=== PATIENT | male | born 1975 | race American Indian/Alaskan Native ===

== ENCOUNTER 2017-05-08 10:27 | Outpatient (CLI) | payer OTHER ==
[2017-05-08] MEDS ORDERED: XYLOCAINE TOPICAL 4% TP ONE ×2 (11:10→12:37)
[2017-05-08] MEDS ORDERED: AD OINTMENT TP ONE (11:33)
[2017-05-09] MEDS ORDERED: AD OINTMENT TP SCH (10:00)
== END 2017-05-08 10:28 | disposition home or self-care (01) ==
LOC: WOUND 10:27
PROVIDERS: ATTEND Surgery
DX: T81.89XA Other complications of procedures, not elsewhere classified, initial encounter (principal); Y83.8 Other surgical procedures as the cause of abnormal reaction of the patient, or of later complication, without mention of misadventure at the time of the procedure; Y92.89 Other specified places as the place of occurrence of the external cause
CPT/HCPCS: 11042; G0463; A6250

== ENCOUNTER 2021-03-16 12:07 | Emergency (ER) | payer OTHER ==
--- NOTE | 2021-03-16 12:24 | Emergency Department Report ---
ED CPR HPI - General Chief Complaint: Cardiac Arrest/CPR Stated Complaint: CARDIAC ARREST Time Seen by Provider: 03/16/21 12:24 Source: family, EMS (Verbal report received from emergency medical services. EMS documentation not available at time of chart dictation ), RN notes reviewed, old records reviewed Mode of arrival: Stretcher Limitations: Physical Limitation - History of Present Illness Initial Comments: The patient was evaluated in the emergency department for symptoms described in the history of present illness. He/she was evaluated in the context of the global COVID-19 pandemic, which necessitated consideration that the patient might be at risk for infection with the virus that causes COVID-19. Institutional protocols and algorithms that pertain to the evaluation of patients at risk for COVID-19 are in a state of rapid change based on information released by regulatory bodies including the CDC and federal and state organizations. These policies and algorithms were followed during the patient's care in the emergency department. Please note that these policies, procedures and recommendations changed on a rapid basis. Patient is a 46-year-old gentleman, with a history of lupus, end-stage renal disease on hemodialysis. He is brought to the hospital by emergency medical services as an [id number]-[id number] nontraumatic cardiac arrest. Patient arrives with an oral airway, receiving [id number] ventilation. History obtained from EMS. EMS reports the patient was at dialysis today, but did not receive hemodialysis. 911 was activated because of possible convulsive activity. EMS arrived on the scene, and the patient is pulseless. EMS started high-quality CPR, and lhu-sabom-mdgy ventilation. They stated that they intubated the patient, but had to remove the tube, because of copious blood coming from the endotracheal tube. EMS reports that in the field, the patient had a rhythm that was suspicious for either ventricular tachycardia or V. fib. They report the patient was shocked, and received amiodarone. Shortly thereafter, EMS reported that the patient's rhythm converted to asystole. Patient was pulseless for about 25 minutes prior to arrival to this emergency room. EMS continue standard ACLS interventions. In this emergency room, the patient arrived with a GCS of 3T, pupils dilated, do not react to light, and an IO line in his left lower extremity. He received high-quality CPR. He received high-quality standard ACLS medications. Unfortunately, bedside ultrasound shows complete cardiac standstill, and no coordinated ventricular activity. In spite of vigorous attempted resuscitation, pulses are not able to be reobtained, and thus efforts were terminated secondary to prolonged downtime and medical futility. The patient's family is subsequently informed. Complaint: collapsed during rest, seizure -: minute(s) Place: other Bystander CPR Performed: No Initial Findings in the Field: no pulse Treatments Prior to Arrival: intubation, BMV, chest compressions, defribrillated shocks #, epinephrine mgs #, amiodarone - Related Data Home Medications Medication Instructions Recorded Confirmed Last Taken Aspirin 81 mg PO DAILY 04/26/17 04/26/17 04/26/17 Plaquenil 200 mg PO DAILY 04/26/17 04/26/17 04/26/17 Previous Rx's Medication Instructions Recorded Last Taken Type Aspirin [Aspirin BABY CHEW TAB] 81 mg PO QDAY tab.chew 04/29/17 Unknown Rx Fluconazole [Diflucan TAB] 200 mg PO QDAY #30 tablet 04/29/17 Unknown Rx Hydroxychloroquine [Plaquenil] 200 mg PO QDAY tablet 04/29/17 Unknown Rx Ketoconazole 2% [Nizoral] 1 applic TP BID #60 tube 04/29/17 Unknown Rx oxyCODONE /ACETAMINOPHEN [Percocet 1 tab PO Q6H PRN #30 tablet 04/29/17 Unknown Rx 5/325 mg] Allergies Allergy/AdvReac Type Severity Reaction Status Date / Time No Known Allergies Allergy Unverified 04/26/17 11:13 ED Review of Systems ROS: Stated complaint: CARDIAC ARREST Other details as noted in HPI Comment: Unobtainable due to pts medical conditions ED Past Medical Hx - Past Medical History Hx Hypertension: No Hx Liver Disease: Yes (reports elevated liver enzymes due to lupus) Hx Renal Disease: No Hx Seizures: No Hx Asthma: No - Social History Smoking Status: Never Smoker - Medications Home Medications: Home Medications Medication Instructions Recorded Confirmed Last Taken Type Aspirin 81 mg PO DAILY 04/26/17 04/26/17 04/26/17 History Plaquenil 200 mg PO DAILY 04/26/17 04/26/17 04/26/17 History Aspirin [Aspirin BABY CHEW TAB] 81 mg PO QDAY tab.chew 04/29/17 Unknown Rx Fluconazole [Diflucan TAB] 200 mg PO QDAY #30 tablet 04/29/17 Unknown Rx Hydroxychloroquine [Plaquenil] 200 mg PO QDAY tablet 04/29/17 Unknown Rx Ketoconazole 2% [Nizoral] 1 applic TP BID #60 tube 04/29/17 Unknown Rx oxyCODONE /ACETAMINOPHEN [Percocet 1 tab PO Q6H PRN #30 tablet 04/29/17 Unknown Rx 5/325 mg] ED Physical Exam - General Limitations: Altered Mental Status, Physical Limitation General appearance: other (GCS of 3T) - Head Head exam: Present: atraumatic, normocephalic - Eye Eye exam: Present: normal appearance Pupils: Present: other (Pupils dilated do not react to light) - ENT ENT exam: Present: normal exam, mucous membranes moist, normal external ear exam (Oral pharyngeal airway noted.) - Neck Neck exam: Present: normal inspection - Respiratory Respiratory exam: Present: other (The patient is apneic). Absent: normal lung sounds bilaterally, respiratory distress - Cardiovascular Cardiovascular Exam: Present: other (No pulses,). Absent: systolic murmur, diastolic murmur, rubs, gallop - GI/Abdominal GI/Abdominal exam: Present: soft - Rectal Rectal exam: Present: deferred - Extremities Exam Extremities exam: Present: normal inspection, other (Intraosseous line noted in left lower extremity) - Back Exam Back exam: Present: normal inspection - Neurological Exam Neurological exam: Present: altered (GCS of 3T) - Psychiatric Psychiatric exam: Present: other (The patient is nonverbal) - Skin Skin exam: Present: warm, dry, intact, normal color. Absent: rash ED Medical Decision Making - Medical Decision Making Differential diagnosis, including but not limited to: Hyperkalemia, acute coronary syndrome, pulmonary embolism. Critical care attestation.: If time is entered above; I have spent that time in minutes in the direct care of this critically ill patient, excluding procedure time. ED Disposition Clinical Impression: Cardiac arrest Disposition: DC-20 Is pt being admited?: No Does the pt Need Aspirin: No Condition: Undetermined Referrals: PRIMARY CARE,MD [Primary Care Provider] - 3-5 Days
[2021-03-16] MEDS ORDERED: CALCIUM CHLORIDE 1,000 MG/10 ML SYRINGE IV ONE (14:07)
[2021-03-16] MEDS ORDERED: SODIUM BICARB 8.4% 50 MEQ/50 ML SYRINGE IV ONE (14:07)
== END 2021-03-16 15:58 ==
LOC: ED 12:07
DX: I46.9 Cardiac arrest, cause unspecified (principal); Z79.899 Other long term (current) drug therapy
CPT/HCPCS: 92950